=== PATIENT | female | born 1955 | race Caucasian/White ===

== ENCOUNTER → 2016-09-05 | Outpatient (CLI) | payer BC ==
[~2016-09-05] MED LIST: ADVIL200 MG PO; CALCIUM 500 + D1 TAB PO; FOSAMAX 70MG TA70 MG PO; MAGNESIUM ELEME30 MG PO; NORCO 325 MG-51 TAB PO; PROZAC40 MG PO; SUPER EPA 1201200 MG PO; TAGAMET200 MG PO; TYLENOL 325MG325 MG PO; VALIUM 2MG T2 MG/TAB PO; VITAMIN D1000 IU PO
== END ==
LOC: MC.RAD 09:00
DX: Z12.31 Encounter for screening mammogram for malignant neoplasm of breast (principal)

== ENCOUNTER → 2017-09-14 | Outpatient (CLI) | payer BC | LOC: MC.RAD 09:18 | DX: Z12.31 Encounter for screening mammogram for malignant neoplasm of breast (principal) ==

== ENCOUNTER 2018-09-27 22:36 | Emergency (ER) | payer BC ==
[~2018-09-27] VITALS: Ht 162.6 cm; Wt 76.8 kg
[2018-09-27 22:38] VITALS: BP 129/90
[2018-09-27 23:32] VITALS: TEMP 97.1
[2018-09-27 23:45] VITALS: PULSE 75
== END 2018-09-27 23:43 | disposition home or self-care (01) ==
LOC: COL.ER 22:36
DX: S42.251A Displaced fracture of greater tuberosity of right humerus, initial encounter for closed fracture (principal); E78.5 Hyperlipidemia, unspecified; W01.0XXA Fall on same level from slipping, tripping and stumbling without subsequent striking against object, initial encounter
CPT/HCPCS: J2270; J2550

== ENCOUNTER 2019-01-06 12:45 | Outpatient (RCR) | payer BC | END 2019-02-02 14:35 | disposition home or self-care (01) | LOC: MKS.ESL.PT 12:45 | DX: M84.421D Pathological fracture, right humerus, subsequent encounter for fracture with routine healing (principal) ==

== ENCOUNTER → 2019-02-21 | Outpatient (CLI) | payer BC | LOC: MC.RAD 09:53 | DX: Z12.31 Encounter for screening mammogram for malignant neoplasm of breast (principal) ==

== ENCOUNTER → 2020-02-23 | Outpatient (CLI) | payer BC | LOC: MC.RAD 09:56 | DX: Z12.31 Encounter for screening mammogram for malignant neoplasm of breast (principal) ==

== ENCOUNTER → 2021-02-25 | Outpatient (CLI) | payer BC | LOC: MC.RAD 10:22 | DX: Z12.31 Encounter for screening mammogram for malignant neoplasm of breast (principal) ==

== ENCOUNTER → 2022-03-25 | Outpatient (CLI) | payer MEDICARE, BC | LOC: MC.RAD 02-26 09:30 | DX: Z12.31 Encounter for screening mammogram for malignant neoplasm of breast (principal) ==